=== PATIENT | female | born 1995 | race Caucasian/White ===

== ENCOUNTER → 2023-02-23 | Outpatient (CLI) | payer MEDICAID, SELFPAY ==
[2023-02-23 13:53] LABS: Hematocrit 34.6 % (37-47); Hemoglobin 10.3 g/dL (12.0-15.0); Mean Corp Hgb Conc 29.8 g/dL (32-36); Mean Corpuscular Hgb 24.9 pg (27.0-32.0); Mean Corpuscular Volume 83.8 fL (81-99); Mean Platelet Vol. 9.2 fl (6.2-12.0); Platelet Count 317 K/mm3 (150-450); RBC Distribution Width CV 15.8 % (11.6-14.6); RBC Distribution Width SD 47.6 fl (35.1-43.9); Red Blood Count 4.13 M/mm3 (4.2-5.4); White Blood Count 7.6 K/mm3 (4.4-11.0)
[2023-02-23 14:14] LABS: Estradiol 72.2 pg/mL; Follicle Stimulating Hormone 3.7 mIU/mL; Luteinizing Hormone 2.4 mIU/mL; T4 Free Direct 0.76 ng/dL (0.76-1.46); Thyroid Stim Hormone (TSH) 1.21 uIU/mL (0.358-3.74)
[2023-03-02 12:08] LABS: Testosterone, % Free 1.95 % (0.50-2.80); Testosterone, Free 0.35 ng/dL (0.10-0.85); Testosterone, Total 18 ng/dL (13-71)
== END | disposition home or self-care (01) ==
LOC: WOBLAB 11:59
PROVIDERS: PCP Family Medicine; Visit Provider Obstetrics & Gynecology
DX: N93.9 Abnormal uterine and vaginal bleeding, unspecified (principal)
CPT/HCPCS: 36415; 82670; 83001; 83002; 84402; 84403; 84439; 84443; 85027

== ENCOUNTER → 2025-05-22 | Outpatient (CLI) | payer MEDICAID, SELFPAY ==
[2025-05-22 15:34] LABS: Hematocrit 38.9 % (37-47); Hemoglobin 12.9 g/dL (12.0-15.0); Immature Granulocytes Count 0.070 X10^3/uL (0.0-0.0); Mean Corp Hgb Conc 33.2 g/dL (32-36); Mean Corpuscular Volume 89.6 fL (81-99); Mean Platelet Vol. 9.3 fl (6.2-12.0); NRBC Flagged by Analyzer 0 % (0-5); Platelet Count 337 K/mm3 (150-450); RBC Distribution Width CV 12.1 % (11.6-14.6); RBC Distribution Width SD 39.6 fl (35.1-43.9); Red Blood Count 4.34 M/mm3 (4.2-5.4); White Blood Count 11.2 K/mm3 (4.4-11.0)
[2025-05-22 16:02] LABS: CRP 7.04 mg/L (0.0-3.0)
[2025-05-22 16:07] LABS: AST(SGOT) 16 U/L (<=31); Alanine Aminotransfer ALT/SGPT 15 U/L (<=34); Albumin, Serum 4.6 g/dL (3.5-5.0); Alkaline Phosphatase 92 U/L (35-104); Anion Gap 14 (5-15); BUN 9 mg/dL (4-19); BUN/Creat Ratio 13.6 RATIO (10-20); Calcium,Total 9.5 mg/dL (7.6-11.0); Carbon Dioxide 20.9 mmol/L (21.0-32.0); Chloride 106 mmol/L (98-108); Globulin 3.8 g/dL (2.2-4.2); Glucose 97 mg/dL (70-99); Potassium 3.6 mmol/L (3.3-5.1)
[2025-05-28 09:08] LABS: Immunoglobulin A 392 mg/dL (87-352)
[2025-05-29 03:07] LABS: Egg, Whole <0.10 kU/L (Class 0); Mussels <0.10 kU/L (Class 0)
== END | disposition home or self-care (01) ==
LOC: LAB 13:44
PROVIDERS: PCP Family Medicine; Referring Provider Student in an Organized Health Care Education/Training Program; Visit Provider Student in an Organized Health Care Education/Training Program
DX: R15.2 Fecal urgency (principal); R19.5 Other fecal abnormalities; R11.0 Nausea
CPT/HCPCS: 36415; 80053; 82784; 83516; 85025; 85652; 86003; 86005; 86140; 86255

== ENCOUNTER → 2025-06-05 | Outpatient (CLI) | payer MEDICAID, SELFPAY ==
[2025-06-10 08:08] LABS: Calprotectin, Stool 38 ug/g (0-120)
== END | disposition home or self-care (01) ==
LOC: LAB 14:00
PROVIDERS: PCP Family Medicine; Referring Provider Student in an Organized Health Care Education/Training Program; Visit Provider Student in an Organized Health Care Education/Training Program
DX: K58.9 Irritable bowel syndrome, unspecified (principal)
CPT/HCPCS: 83630; 83993; 87177; 87209; 87329; 87493; 87506

== ENCOUNTER → 2025-08-20 | Outpatient (CLI) | payer MEDICAID, SELFPAY ==
--- NOTE | 2025-08-20 10:55 | ECHOD_ITS ---
Reason For Study Reason For Study: ARRHYTHMIA Procedure This was a 2D Doppler, Color Flow transthoracic echocardiogram. Exam performed in department. Left Ventricle Normal LV size. Left ventricular systolic function is normal. The left ventricular ejection fraction is 70 %. No regional wall motion abnormalities noted. Right Ventricle Normal RV size. Normal systolic function. Atria Normal left atrium. Normal right atrium. Mitral Valve Normal mitral valve. Tricuspid Valve Normal tricuspid valve. Aortic Valve Trisinus/trileaflet aortic valve. Pulmonic Valve Normal pulmonic valve. Great Vessels Normal aortic root. The pulmonary artery is normal size. Inferior vena cava collapse with respiration. Pericardium/Pleural No pericardial effusion. MMode/2D Measurements & Calculations LVIDd: 4.5 cm IVSd: 0.68 cm Ao root diam: 2.5 cm LVIDs: 3.1 cm LVPWd: 0.71 cm RVDd: 3.1 cm FS: 30.8 % LAV(MOD-bp): 33.5 ml LVAd ap4: 29.1 cm2 LVAd ap2: 25.9 cm2 LAV(MOD-bp) Indexed: 18.6 ml/m2 LVLd ap4: 7.8 cm LVLd ap2: 7.7 cm LAV(MOD-sp2): 33.9 ml EDV(MOD-sp4): 87.4 ml EDV(MOD-sp2): 74.1 ml LAV(MOD-sp4): 33.6 ml EDV(sp4-el): 91.7 ml EDV(sp2-el): 73.7 ml LVAs ap4: 14.5 cm2 LVAs ap2: 13.0 cm2 LVLs ap4: 6.7 cm LVLs ap2: 6.3 cm ESV(MOD-sp4): 27.5 ml ESV(MOD-sp2): 23.6 ml ESV(sp4-el): 26.5 ml ESV(sp2-el): 22.7 ml EF(MOD-sp4): 68.6 % EF(MOD-sp2): 68.2 % EF(sp4-el): 71.1 % SV(MOD-sp4): 60.0 ml SV(MOD-sp2): 50.5 ml SV(sp4-el): 65.2 ml SI(MOD-sp4): 33.2 ml/m2 SI(MOD-sp2): 28.0 ml/m2 LA A4 area: 14.1 cm2 LA dimension(2D): 3.4 cm RA A4 area: 12.6 cm2 TAPSE: 2.3 cm Time Measurements MV dec time: 0.17 sec Doppler Measurements & Calculations MV E max ezequiel: 105.3 cm/sec Lat Peak E' Ezequiel: 20.3 cm/sec Med Peak E' Ezequiel: 16.0 cm/sec MV A max ezequiel: 52.0 cm/sec E/E' lat: 5.2 E/E' med: 6.6 MV E/A: 2.0 MV V2 max: 119.3 cm/sec MV P1/2t max ezequiel: 123.8 cm/sec Ao V2 max: 128.6 cm/sec MV max P.7 mmHg MV P1/2t: 61.0 msec Ao max P.6 mmHg MV V2 mean: 48.5 cm/sec Ao V2 mean: 88.8 cm/sec MV mean P.3 mmHg MV dec slope: 594.7 cm/sec2 Ao mean P.6 mmHg MV V2 VTI: 28.3 cm MVA(P1/2t): 3.6 cm2 Ao V2 VTI: 26.1 cm AV (velocity ratio): 0.94 LV V1 max: 116.8 cm/sec PA V2 max: 99.6 cm/sec TR max ezequiel: 218.3 cm/sec LV V1 max P.5 mmHg TR max P.1 mmHg LV V1 mean P.3 mmHg LV V1 mean: 84.6 cm/sec LV V1 VTI: 24.6 cm ECHO/Echo Complete Interpretation Summary Normal LV size. Left ventricular systolic function is normal. The left ventricular ejection fraction is 70 %. Structurally normal valves. Ordering Physician: Constantino Maradiaga Referring Physician: Will Phelan Performed By: Polina Grossman, NEYMAR, RVT
== END | disposition home or self-care (01) ==
LOC: CVS 10:52
PROVIDERS: PCP Family Medicine; Referring Provider Internal Medicine Cardiovascular Disease; Visit Provider Internal Medicine Cardiovascular Disease
DX: R42 Dizziness and giddiness (principal)
CPT/HCPCS: 93306

== ENCOUNTER → 2025-09-09 | Outpatient (CLI) | payer MEDICAID, SELFPAY ==
[2025-09-08 09:12] LABS: Hematocrit 39.3 % (37-47); Hemoglobin 12.8 g/dL (12.0-15.0); Mean Corp Hgb Conc 32.6 g/dL (32-36); Mean Corpuscular Volume 89.3 fL (81-99); Mean Platelet Vol. 8.9 fl (6.2-12.0); Platelet Count 308 K/mm3 (150-450); RBC Distribution Width CV 12.6 % (11.6-14.6); RBC Distribution Width SD 41.2 fl (35.1-43.9); Red Blood Count 4.40 M/mm3 (4.2-5.4); White Blood Count 9.6 K/mm3 (4.4-11.0)
[2025-09-08 09:33] LABS: Internal QC Validated? YES +Cl - CLEAR BKGD; Pregnancy, Serum, hCG Quali. NEGATIVE Negative
[2025-09-08 09:35] LABS: Anion Gap 10 (5-15); BUN 10 mg/dL (4-19); BUN/Creat Ratio 15.8 RATIO (10-20); Calcium,Total 10.0 mg/dL (7.6-11.0); Carbon Dioxide 25.9 mmol/L (21.0-32.0); Chloride 105 mmol/L (98-108); Glucose 98 mg/dL (70-99); Potassium 3.9 mmol/L (3.3-5.1)
--- NOTE | 2025-09-09 20:19 | PCM.TILTTABL ---
Staff Staff: Anne Marie Kelsey and Alisia Phillip Summary Pre Test Resting HR: 82 Pre Test Resting BP: 127/78 Minimum Test HR: 66 Maximum Test HR: 114 Minimum Test BP: 100/62 Maximum Test BP: 134/86 Physician Tilt Table Report Patient's Physicians Primary Care Physician: Will Phelan Indications/Diagnosis: Possible POTS Procedure Comments: The patient was brought to the noninvasive lab in the postabsorptive state. Initial heart rate and blood pressure were obtained. The patient was put in the 70 degree head upright tilt position at 11:24 AM. The initial heart rate was 102 bpm which chace to a peak of 114 bpm within 3 minutes. The patient complained of dizziness nausea legs feeling heavy and then apparently lost consciousness though the patient still maintained a blood pressure of 100/62 and her heart rate then came down to 66. She did awaken with a sternal rub. Heart rate and blood pressures remained stable. After that the patient was recovered with stable blood pressures. Summary: Head upright tilt table test with nondiagnostic hemodynamic parameters. Apparent loss of consciousness with no hemodynamic changes.
[2025-09-09 20:24] VITALS: BP 100/62; BP 127/78; BP 134/86
== END | disposition home or self-care (01) ==
LOC: CVS 10:11
PROVIDERS: PCP Family Medicine; Referring Provider Internal Medicine Cardiovascular Disease; Visit Provider Internal Medicine Cardiovascular Disease
DX: R00.0 Tachycardia, unspecified (principal)
CPT/HCPCS: 36415; 80048; 84703; 85027; 93660; A4216